=== PATIENT | female | born 1960 | race Caucasian/White ===

== ENCOUNTER 2020-05-21 04:07 | Emergency (ER) | payer MEDICAID ==
[~2020-05-21] VITALS: Ht 157.5 cm; Wt 83.0 kg
[~2020-05-21 04:07] MED LIST: ATOR20TA65 PO; CALC667C PO; FAMO20TA8 PO; HYDR-4134 PO; LACT10SO PO; LEVO137T2 PO; LOSA25TA26 PO; NEPVIT MT; NIFE90TA43 PO
[2020-05-21] MEDS ORDERED: POTASSIUM CHLORIDE 20MEQ TABLET SR PO SCH (05:30)
[2020-05-21 07:30] VITALS: BP 190/78
== END 2020-05-21 08:55 | disposition home or self-care (01) ==
LOC: EDUNIT# 04:07 → ER 04:07
DX: T82.41XA Breakdown (mechanical) of vascular dialysis catheter, initial encounter (principal); Y84.1 Kidney dialysis as the cause of abnormal reaction of the patient, or of later complication, without mention of misadventure at the time of the procedure; E87.6 Hypokalemia; Y92.9 Unspecified place or not applicable; I12.0 Hypertensive chronic kidney disease with stage 5 chronic kidney disease or end stage renal disease; N18.6 End stage renal disease; Z99.2 Dependence on renal dialysis
CPT/HCPCS: 99284